=== PATIENT | female | born 1960 | race Caucasian/White ===

== ENCOUNTER 2025-03-25 11:19 | Emergency (ER) | payer SELFPAY ==
[~2025-03-25] VITALS: Ht 162.6 cm; Wt 55.1 kg
[2025-03-25] MEDS: dexamethasone sod phosphate 10mg/ml inj IM STA (12:27)
--- NOTE | 2025-03-25 15:03 | RADIOLOGY REPORT ---
EXAM: CT CT LUMBAR SPINE HISTORY: LOWER BACK PAIN RADIATING INTO RIGHT LEG NO INJURY COMPARISON: None TECHNIQUE: Noncontrast axial CT images of the lumbar spine were performed. Sagittal and coronal refor matted images were obtained. This CT exam was performed using one or more of the following dose reduc tion techniques: Automated exposure control, adjustment of the mA and/or kv according to patient size , or the use of iterative reconstruction techniques. Radiation Dose: CT Dose: CTDI volume is 9.94 mGy. Dose-length product is 308 mGy*cm FINDINGS: No fractures are identified in the lumbar spine. There is grade 1 anterolisthesis L4 on L5 measuring 2.5 mm AP, without evidence of spondylolysis. There is moderate degenerative disc disease. There is moderate to severe lower lumbar facet arthropathy. No significant spinal canal stenosis at any leve l in the lumbar spine. There is significant neural foraminal stenosis on the right at L4-L5. There is fecal retention in the colon, not fully imaged here. There is scarring and/or atelectasis in the darrel ateral lung bases. There is a left hepatic simple cyst. IMPRESSION: 1. No fracture of the lumbar spine. 2. Degenerative disc disease and facet arthropathy with significant neural foraminal stenosis on the right at L4-L5. These findings May correspond to right lower extremity radicular symptoms in the L4 nerve root distribution. 3. Fecal retention in the colon suggestive of constipation.
[2025-03-25] MEDS ORDERED: DEC4T PO (15:14)
[2025-03-25] MEDS ORDERED: HYDR-3972 PO (15:14)
--- NOTE | 2025-03-25 15:15 | Physician Documentation ---
History of Present Illness ~ Chief Complaint: Back Pain Stated Complaint: BACK PAIN Time Seen by MD: 11:32 Source: patient Mode of Arrival: POV Exam Limitations: no limitations HPI 64-year-old female with chief complaint right lower back pain that radiates into her right leg and states she has had this intermittently for some time but recently it worsened. No precipitating injury or event. She contacted [facility] and does have an appointment to be seen in 2-1/2 weeks. She did contact her primary care provider who is also ordered an MRI but states she can not get the MRI for five weeks so she wanted to come to the ER and get an MRI here. She denies any urinary retention, bowel or bladder incontinence, clumsiness of her lower extremities. No recent falls or concerned about falling. Pre arrival treatment with [place] and Flexeril have provided minimal improvement. Exit Medication Reconciliation Allergies: Coded Allergies: nitrofurantoin (Unverified Allergy, Mild, rash, 03/25/25) Scheduled Dexamethasone* (Decadron*), 1 TAB PO BID Scheduled PRN Hydrocodone Bit/Acetaminophen (Hydrocodon-Acetaminophn 10-325 tablet), 1 TAB PO TID PRN PRN for pain Past Medical History Past Medical History: Chronic Back Pain Past Surgical History: noncontributory Drug Use: none Lives In: Home Review of Systems All Other Systems at this time: Reviewed and Negative Physical Exam Physical Exam Vital Signs: Temperature: 98.0, Source: Temporal, Heart Rate: 106, Respiratory Rate: 16, BP: 143/90, Pulse Oximetry: 100, Weight: 55.100 Oxygen Flow Rate: 0 Physical Exam General Appearance: Alert, WD/WN. NAD. HEENT: NCAT, PERRL, EOMI. Neck: Supple, trachea midline. Cardiovascular: RRR. No m/r/g. Lungs: CTAB. Breathing unlabored Extremities: Normal inspection. No edema. MUSCULOSKELETAL: PATIENT IS SITTING IN WHEELCHAIR LEANING FORWARD AND LUMBAR FLEXION SHE STATES PAIN IS BETTER WHEN SHE IS IN A FLEXED POSITION WITH HER LUMBAR SPINE. PATIENT STANDS UP AND WITH LUMBAR EXTENSION SHE REPORTS PAIN. Skin: Warm/dry, normal color Neurological: Alert and oriented x4, GAIT IS ANTALGIC PATIENT IS FAVORING HER LEFT LEG. STRENGTH OF MAJOR FLEXOR AND EXTENSOR MUSCLES RIGHT LEG IS FULL AT 5/5. Psychiatric: Affect congruent with mood. Progress Results/Orders Results/Orders Orders - MARQUIS LAMB Ct Lumbar Spine (03/25/25 14:43) Completed Orders - MARQUIS LAMB Dexamethasone Inj (Decadron 10mg/Ml Inj) (03/25/25 12:19) Ct Lumbar Spine (03/25/25 14:43) Medications Received in ER Medications (Trade) Dose Ordered Sig/Amaya Route PRN Reason Start Time Stop Time Status Last Admin Dose Admin (Decadron 10mg/ ml inj) 10 mg ONCE STAT IM 03/25/25 12:19 03/25/25 12:20 DC 03/25/25 12:27 10 MG Vital Signs 03/25/25 11:22 Temp 98.0 Pulse 106 Resp 16 B/P (MAP) 143/90 Pulse Ox 100 O2 Flow Rate 0 Medical Decision Making Differential Dx:Considerations: Include: AAA, Aortic dissection, , Appendicitis, Bowel obstruction, Cholelithiasis, Cholangitis, DJD, Ectopic , Fracture, Hepatitis, HNP, Musculoskeletal pain, Pancreatitis, Pyelonephritis, Strain, Urinary obstruction, Urolithiasis, Ovarian torsion, Other Differential Diagnosis PATIENT HAS NO CENTRAL SPINAL STENOSIS ON CT SCAN, PATIENT HAS PAIN INTO HER RIGHT LEG BUT NO STRENGTH ISSUES OR CLUMSINESS OF EXTREMITIES. Departure Time of Disposition: 15:11 Disposition: 01 HOME / SELF CARE / HOMELESS Impression: Primary Impression: Foraminal stenosis of lumbar region Additional Impression: Low back pain radiating to right lower extremity Condition: Stable Discharge Instructions: Acute Back Pain, Adult Additional Instructions: Follow up with primary care provider for MRI as we discussed as well as [facility] pain management for evaluation for injection. I sent a prescription for a Decadron taper to [facility] as well as [facility]. If you experience uncontrolled pain or any worsening of symptoms return to the ER. EXAM: CT CT LUMBAR SPINE HISTORY: LOWER BACK PAIN RADIATING INTO RIGHT LEG NO INJURY COMPARISON: None TECHNIQUE: Noncontrast axial CT images of the lumbar spine were performed. Sagittal and coronal reformatted images were obtained. This CT exam was perfor med using one or more of the following dose reduction techniques: Automated exposure control, adjustment of the mA and/or kv according to patient size, or the use of iterative reconstruction techniques. Radiation Dose: CT Dose: CTDI volume is 9.94 mGy. Dose-length product is 308 mGy*cm FINDINGS: No fractures are identified in the lumbar spine. There is grade 1 anterolisthesis L4 on L5 measuring 2.5 mm AP, without evidence of spondylolysis. There is moderate degenerative disc disease. There is moderate to severe lower lumbar facet arthropathy. No significant spinal canal stenosis at any level in the lumbar spine. There is significant neural foraminal stenosis on the right at L4-L5. There is fecal retention in the colon, not fully imaged here. There is scarring and/or atelectasis in the bilateral lung bases. There is a left hepatic simple cyst. IMPRESSION: 1. No fracture of the lumbar spine. 2. Degenerative disc disease and facet arthropathy with significant neural foraminal stenosis on the right at L4-L5. These findings May correspond to right lower extremity radicular symptoms in the L4 nerve root distribution. 3. Fecal retention in the colon suggestive of constipation. Referrals: NO PRIMARY CARE PROVIDER (PCP) Prescriptions Hydrocodone Bit/Acetaminophen (Hydrocodon-Acetaminophn 10-325 tablet) 10mg- 325mg Tablet 1 TAB PO TID PRN PRN for pain for 5 Days, #15 TAB dx: foraminal stenosis l4 acute on chronic lbp, m54.50 Prov: MARQUIS LAMB 03/25/25 Dexamethasone* (Decadron*) 4 Mg Tablet 1 TAB PO BID, #10 TAB Prov: MARQUIS LAMB 03/25/25 Education Educated: Patient Educated regarding: diagnosis, treatment, need for follow up Signature Scribe Signature: x Attestation: MARQUIS Walton Mar 25, 2025 15:15
[2025-03-25 15:31] VITALS: BP 128/83; PULSE 90; RESP 16; TEMP 98; O2SAT 100
== END 2025-03-25 15:32 | disposition home or self-care (01) ==
LOC: ER 11:20
DX: M48.061 Spinal stenosis, lumbar region without neurogenic claudication (principal); M54.50 Low back pain, unspecified; Z88.8 Allergy status to other drugs, medicaments and biological substances; Z79.899 Other long term (current) drug therapy
CPT/HCPCS: 72131; 96372; 99285; J1100